=== PATIENT | female | born 1985 | race Caucasian/White ===

== ENCOUNTER 2018-07-06 10:52 | Emergency (ER) | payer BC, MEDICAID ==
[2018-07-06 11:04] VITALS: BP 122/85
--- NOTE | 2018-07-06 11:26 | UC ---
Back Pain HPI - HPI Summary HPI Summary: 32 y/o female presents to the urgent care c/o lower back pain since 06/30. pt [place] and when she finishe doing her shore she sat and when she tried to get up lower back pain started. She has Hx of a herniated disc in her lower back when she was 20 y/o which resolved w/ Physical therapy. She never had back problems until now. Pain has worsen to the point she has to walk very slowly and it is worse when she sits. Pain is 7/10 sharp w/ movement, bending and sitting. It radiates to her left leg w/ mild tingling sensation at times. Pt denies fever, saddle anesthesia, urinary or fecal incontinence, SOB, chest pain, abdominal pain, N/V/D. LMP: started yesterday 07/05/2018. She has been taking Tylenol/ibuprofen PO. last dose taking of Ibuprofen was yesterday. - History of Current Complaint Chief Complaint: UCBackPain Stated Complaint: BACK PAIN Time Seen by Provider: 07/06/18 11:25 Hx Obtained From: Patient Hx Last Menstrual Period: now ?: No Onset/Duration: Sudden Onset, Lasting Days - 6 days, Still Present, Worse Since - yesterday Timing: Constant Severity Initially: Mild Severity Currently: Moderate Pain Intensity: 7 Pain Scale Used: 0-10 Numeric Back Pain: Is Discrete @ - lower back, Radiates To - left leg Character: Sharp, Spasmodic Aggravating Factor(s): Movement, Lifting, Bending, Other - sitting Alleviating Factor(s): Rest, OTC Meds, Other - laying down Associated Signs And Symptoms: Positive: Tingling - left lower leg. Negative: Swelling, Abdominal Pain, Flank Pain, Bladder Incontinence, Bowel Incontinence, Weight Loss, Pain with Weight Bearing - Risk Factors AAA Risk Factors: Negative TAD Risk Factors: Negative Cauda Equina Risk Factors: Negative Epidural Abscess Risk Factors: Negative - Allergies/Home Medications Allergies/Adverse Reactions: Allergies Allergy/AdvReac Type Severity Reaction Status Date / Time No Known Allergies Allergy Verified 07/06/18 11:04 PMH/Surg Hx/FS Hx/Imm Hx Previously Healthy: Yes - Pt denies PMHX - Surgical History Surgical History: None - Family History Known Family History: Positive: None - Pt denies FMHX - Social History Occupation: Unemployed Lives: With Family Alcohol Use: Occasionally Substance Use Type: None Smoking Status (MU): Never Smoked Tobacco - Immunization History Most Recent Influenza Vaccination: 07/13/15 Most Recent Tetanus Shot: 05/18/15 Most Recent Pneumonia Vaccination: unsure Review of Systems Constitutional: Negative Skin: Negative Eyes: Negative ENT: Negative Respiratory: Negative Cardiovascular: Negative Gastrointestinal: Negative Genitourinary: Negative Motor: Negative Neurovascular: Negative Musculoskeletal: Decreased ROM - lower back, Other: - acute lower back pain Neurological: Numbness - and tingling over the left lower leg Psychological: Negative Is Patient Immunocompromised?: No All Other Systems Reviewed And Are Negative: Yes Physical Exam - Summary Physical Exam Summary: Vital Signs Reviewed: Yes Appearance: Well-Appearing, Well-Nourished, Thin female laying on the examining table w/o any mild pain distress. Eyes: Positive: Conjunctiva Clear - PERRLA, EOMI. ENT: Positive: Normal ENT inspection, Hearing grossly normal, Pharynx normal, TMs normal, Uvula midline Neck: Positive: Supple, Nontender, No Lymphadenopathy Respiratory: Positive: Chest non-tender, Lungs clear, Normal breath sounds, No respiratory distress Cardiovascular: Positive: RRR, No Murmur, Pulses Normal, Brisk Capillary Refill Abdomen Description: Positive: Nontender, No Organomegaly, Soft. Negative: CVA Tenderness (R), CVA Tenderness (L) Bowel Sounds: Positive: Present Musculoskeletal: Positive: Strength Intact, BACK: Patient walked into the urgent care room with symmetric ambulation, but very slow walking, No signs of limping, antalgic, able to bear weight. No signs of trauma, No masses palpated. Point tenderness at the level of L3-S1, No CVAT, no flank ecchymosis . No sacroiliac notch tenderness, No saddle anesthesia.ROM: limited due to pain, Straight Leg Raise: positive. Patellar reflexes: brisk, symmetric Muscle strength lower extremities. Dorsiflexion/ plantar flexion of ankles. Heel/ toe walk. Lower extremities: Femoral, popliteal, posterior tibial, and dorsalis pedis pulses WNL. Sensation is intact. Pt refuse rectal exam Neurological: Positive: Alert, Muscle Tone Normal Psychological Exam: Normal Skin Exam: Normal Triage Information Reviewed: Yes Vital Signs: Initial Vital Signs Temp 97.6 F 07/06/18 11:01 Pulse 94 07/06/18 11:01 Resp 12 07/06/18 11:01 BP 122/85 07/06/18 11:01 Pulse Ox 100 07/06/18 11:01 Back Pain Course/Dx - Course Course Of Treatment: 32 y/o female presents to the urgent care c/o lower back pain since Friday06/30/2018. pt reports she lives in [place] and when she finishe doing her shore she sat and when she tried to get up lower back pain started. She has Hx of a herniated disc in her lower back when she was 20 y/o which resolved w/ Physical therapy. She never had back problems until now. Pain has worsen to the point she has to walk very slowly and it is worse when she sits. Pain is 7/10 sharp w/ movement, bending and sitting. It radiates to her left leg w/ mild tingling sensation at times. Pt denies fever, saddle anesthesia , urinary or fecal incontinence, SOB, chest pain, abdominal pain, N/V/D. LMP: started yesterday 07/05/2018.She has been taking Tylenol/ibuprofen PO. last dose taking of Ibuprofen was yesterday. Hx obtained. PE: Point tenderness at the level of the L3-S1 and left paraspinal muscle spasm at the same level on examination. . Lumbosacral X-ray ordered, Impression: No acute osseous injury observed. Naproxen PO ordered at the clinic. Given by nurse. Pt tolerated well medication pain decrease. Pt Rx Naproxen PO, flexeril PO and given a PT referral. Patient was instructed to the f/u [facility] orthopedic in 1 week if symptoms do not improve or worsen. Patient understands and agrees. Patient is able to ambulate freely w/o aid or limp. Plan of care was discussed with the patient and patient understands and agrees. All questions were answered at patient satisfaction. Pt left clinic hemodynamically stable. - Differential Dx/Diagnosis Differential Diagnosis/HQI/PQRI: Compressive Cord Syndrome, Fracture, Herniated Disc, Renal Colic, Strain, Sprain Provider Diagnoses: 1- Acute lower back pain Discharge - Sign-Out/Discharge Documenting (check all that apply): Patient Departure - D/c home - Discharge Plan Condition: Stable Disposition: HOME Referrals: MacAdam,Alberta, MD [Primary Care Provider] - - Billing Disposition and Condition Condition: STABLE Disposition: Home
[2018-07-06] MEDS ORDERED: Ketorolac INJ* 30 MG/ML 1 ML VIAL IM ONE (11:41)
--- NOTE | 2018-07-06 12:35 | RAD ---
Indication: Back pain. 5 views of lumbar spine demonstrate vertebral bodies to be normal in height. Straightening of the normal lordosis is noted. Disc spaces are well preserved. There is bilateral spondylolysis of L5 pars interarticularis without spondylolisthesis. IMPRESSION: Bilateral spondylolysis of L5 without spondylolisthesis. Straightening of the normal lordosis.
--- NOTE | 2018-07-07 08:49 | UC ---
Discharge - Sign-Out/Discharge Documenting (check all that apply): Post-Discharge Follow Up All imaging exams completed and their final reports reviewed: Yes - Discharge Plan Condition: Stable Disposition: HOME Prescriptions: Cyclobenzaprine TAB* [Flexeril 10 MG TAB*] 10 mg PO TID PRN #21 tab PRN Reason: Spasms - Back methylPREDNISolone [Medrol Dosepak 4 MG*] 4 mg PO .SEE JANAY INSTRUCTION #1 janay Naproxen TAB* [Naprosyn 250 mg TAB*] 250 mg PO Q8H PRN #30 tab PRN Reason: Pain Patient Education Materials: Low Back Strain (ED), Muscle Spasm (ED) Referrals: Alberta Torres MD [Primary Care Provider] - 3 Days Additional Instructions: 1- Please take Naproxen PO as directed after meals for pain. Take Medrol dose janay as directed to alleviate symptoms 2- Take Flexeril PO as directed for muscle spasm. Please do not drive while taking the medication. 3- Wear a back support. Avoid strenuous exercise of heavy lifting. 4- Please follow up with Orthopedic from Sports Medicine or Physical therapy referral 3 days for further management. - Billing Disposition and Condition Condition: STABLE Disposition: Home
== END 2018-07-06 13:03 | disposition home or self-care (01) ==
LOC: UCEAST 10:52
DX: M54.5 Low back pain (principal); M47.816 Spondylosis without myelopathy or radiculopathy, lumbar region
CPT/HCPCS: 72110; 99212; G0463; J1885

== ENCOUNTER → 2019-04-01 06:29 | Day surgery (SDC) | payer OTHER ==
[~2019-04-01 06:29] MED LIST: Acetaminophen IV 1GM/100ML * 1,000 MG/100 ML VIAL IVPB ONE; Buffered Lidocaine 1% SYRIN* 1 ML/SYRINGE INTRADERM ONE; Chloroprocaine 2%* 20 ML VIAL ONE; DOXYcycline IV 200 MG in NS 250 mL *Pre-Op OBGYN IVPB ONE; DiMENhydriNATE IV* 50 MG/ML VIAL IV PUSH PRN; DiMENhydriNATE IV* 50 MG/ML VIAL ONE; Famotidine IV* 10 MG/ML 2 ML (20 mg) IV SLOW PU ONE; Famotidine IV* 10 MG/ML 2 ML (20 mg) ONE; HYDROmorphone INJ1* 1 MG/ML SYRINGE IV PRN; Ketorolac INJ* 30 MG/ML 1 ML VIAL ONE; Lactated Ringers 1000 ML Bag* 1,000 ML IV SCH; Midazolam* 1 MG/ML 5 ML VIAL (5 MG) ONE; Naloxone* 0.4 MG/ML 1 ML VIAL IV PRN; OXYTOCIN* 10 UNITS/ML 1 ML VIAL ONE; Ondansetron INJ* 2 MG/ML VIAL ONE; Propofol* 10 MG/ML 20 ML BTL ONE; fentaNYL* 50 MCG/ML 2 ML VIAL (100 MCG VIAL) ONE
[2019-04-01 11:47] VITALS: BP 124/69
--- NOTE | 2019-04-01 12:37 | OP ---
OPERATIVE NOTE: DATE OF OPERATION: 04/01/19 - SDS DATE OF : 85 SURGEON: Jordyn Hernandez MD ANESTHESIOLOGIST: Dr. Vicente. ANESTHESIA: Spinal with MAC. PRE-OP DIAGNOSIS: Molar . POST-OP DIAGNOSIS: Molar . OPERATIVE PROCEDURE: Suction dilation and evacuation with ultrasound guidance. ESTIMATED BLOOD LOSS: 200 cc. URINE OUTPUT: 100 cc. IV FLUIDS: 700 cc lactated Ringer's with Pitocin added. MATERIALS TO LAB: Products of conception. INDICATIONS: This patient was a 33-year-old 2, para 1 with an intended , recently noted last week to have tissue within the uterus that was consistent with a molar with many cystic areas. No visible fetus was present. Quantitative hCG was obtained, which was initially 170,000 and increased to 270,000 after a few days. Considering these findings, the patient was advised to undergo a suction dilation and evacuation to remove this tissue. She was extensively counseled and agreed with the plan. Consent was signed. FINDINGS: Moderate amount of tissue within the uterus. IV Pitocin was administered during the evacuation and bleeding was limited well. COMPLICATIONS: None. DESCRIPTION OF PROCEDURE: The risks, benefits, and alternatives were described to the patient and informed consent was obtained. The patient was taken to the operating room with IV running where spinal anesthesia was induced and found to be adequate. She was then given sedation as well. She was prepped and draped in the normal sterile fashion in the high lithotomy position in [facility]. A time- out was performed. An abdominal ultrasound was performed just prior to the draping. The bladder was emptied. The speculum was then placed in the vagina and a single tooth tenaculum was placed on the anterior cervix. The cervix was then gently dilated using Hanks and and then Hegar dilators to a maximum size of 9. At that time, a size 8 curved suction curette was advanced through the cervix and into the uterine cavity without difficulty. IV Pitocin and LR were started. The suction device was then activated and with 2 passes, a moderate amount of tissue and fluid were obtained. There was minimal bleeding from the cervix at that time. The ultrasound was repeated and there was a small area of dense tissue at the top of the fundus. Under ultrasound guidance, the suction curette was advanced to that tissue and all of it was removed without difficulty. At that time, there was no visible evidence of tissue remaining within the uterus. A gentle sharp curettage was performed with a medium banjo curette to ensure that there was no additional tissue remaining. At that time, there was minimal bleeding from the uterus. The tenaculum was removed from the cervix and there was good hemostasis after applying silver nitrate and pressure. The speculum was removed and bimanual massage was applied to the uterus as well. The patient was then returned to the supine position. The patient tolerated the procedure well. Sponge, lap, and needle counts were correct x2. [id number]/[facility] #: [id number] [facility]
== END | disposition home or self-care (01) ==
LOC: OR 06:29
PROVIDERS: ATTEND Obstetrics & Gynecology
DX: O01.9 Hydatidiform mole, unspecified (principal)
CPT/HCPCS: 36415; 84702; J1240; J1885; J2250; J2400; J2405; J2590; J2704; J3010